=== PATIENT | male | born 1960 | race African-American/Black ===

== ENCOUNTER 2016-05-29 12:40 | Inpatient (IN) | payer MEDICAID ==
[~2016-05-29] VITALS: Ht 185.4 cm; Wt 81.6 kg
--- NOTE | 2016-05-29 12:56 | Emergency Room Report ---
History of Present Illness General Chief Complaint: Headache Source: Patient, Medical Record, EMS Present Illness HPI Patient presents with possible seizure Was found by paramedics on the ground Patient himself at this time is nonverbal He has reportedly had previous CVA Was also having headaches prior to the episode No reports of vomiting or diarrhea Unknown regarding trauma or recent travel There was no reports of fevers Allergies: Coded Allergies: LACTOSE (Verified Allergy, Unknown, 05/29/16) Patient History Limited by: medical condition Past Medical History: see triage record Pertinent Family History: unable to obtain Reviewed Nursing Documentation: PMH: Agreed, PSxH: Agreed Nursing Documentation-PMH Past Medical History: No History, Except For Hx Cardiac Problems: Yes - dvt, PE Hx Hypertension: Yes Hx Pacemaker: Yes Hx COPD: Yes Hx Neurological Problems: Yes - migraines Hx Cerebrovascular Accident: Yes Hx Seizures: Yes Review of Systems All Other Systems: limited - Other than the ones mentioned in the history of present illness all others are reviewed however they do stay limited due to the patient's mental status Physical Exam Vital Signs Date Time Temp Pulse Resp B/P Pulse Ox O2 Delivery O2 Flow Rate FiO2 05/29/16 12:31 99.5 76 18 170/104 98 Room Air Sp02 EP Interpretation: reviewed, normal General Appearance: no apparent distress - However the patient is staring to the left, questionably postictal not responsive verbally Head: normocephalic, atraumatic Eyes: bilateral eye EOMI, bilateral eye PERRL ENT: normal pharynx, no angioedema Neck: supple, thyroid normal, no meningismus Respiratory: chest non-tender, lungs clear, normal breath sounds, no respiratory distress Cardiovascular #1: normal peripheral pulses, regular rate, rhythm Gastrointestinal: non tender, soft, no mass Musculoskeletal: other - Patient is not following commands at this time he does withdrawal from physical stimuli also the IV attempt, Neurologic: responsive, other - Otherwise a very decreased GCS patient is nonverbal, has eyes open, tracks well, questionably postictal , Skin: no rash, warm/dry Lymphatic: no adenopathy Procedures Critical Care Time Critical Care Time 40 minutes for multiple reevaluation Initial critical presentation Neurological deficit concerning for end organ disease Life threatening pathology Not including procedural time Medical Decision Making Diagnostic Impression: Primary Impression: Epilepsy Additional Impression: Seizure ER Course Patient appears to have presented post ictal Initially was difficult to obtain IV access patient did have CT head obtained which was negative At this time the patient required a peripheral left-sided external jugular IV access which was placed by myself 22-gauge after cleansing and prepping the area appropriately placed in the appropriate manner Area was flushed and does not show any signs of anomaly Patient was given further Ativan here in the ER Neurology consultation has also seen the patient in the emergency room and patient admitted for further inpatient care He was able to leading to that he was recently discharged from [facility] is on multiple medications including Keppra and vimpat Labs Test 05/29/16 13:35 05/29/16 14:20 Urine Color Pale yellow Urine Appearance Clear Urine pH 8 (4.5-8.0) Urine Specific [place] 1.010 (1.005-1.035) Urine Protein Negative (NEGATIVE) Urine Glucose (UA) Negative (NEGATIVE) Urine Ketones Negative (NEGATIVE) Urine Occult Blood Negative (NEGATIVE) Urine Nitrite Negative (NEGATIVE) Urine Bilirubin Negative (NEGATIVE) Urine Urobilinogen Normal MG/DL (0.0-1.0) Urine Leukocyte Esterase Negative (NEGATIVE) Urine Opiates Screen Negative (NEGATIVE) Urine Barbiturates Screen Negative (NEGATIVE) Phencyclidine (PCP) Screen Negative (NEGATIVE) Urine Amphetamines Screen Negative (NEGATIVE) Urine Benzodiazepines Screen Negative (NEGATIVE) Urine Cocaine Screen Negative (NEGATIVE) Urine Marijuana (THC) Screen Negative (NEGATIVE) White Blood Count 4.4 K/UL (4.8-10.8) Red Blood Count 5.04 M/UL (4.70-6.10) Hemoglobin 14.6 G/DL (14.2-18.0) Hematocrit 45.2 % (42.0-52.0) Mean Corpuscular Volume 90 FL (80-99) Mean Corpuscular Hemoglobin 28.9 PG (27.0-31.0) Mean Corpuscular Hemoglobin Concent 32.2 G/DL (32.0-36.0) Red Cell Distribution Width 13.5 % (11.6-14.8) Platelet Count 305 K/UL (150-450) Mean Platelet Volume 6.3 FL (6.5-10.1) Neutrophils (%) (Auto) 43.1 % (45.0-75.0) Lymphocytes (%) (Auto) 44.9 % (20.0-45.0) Monocytes (%) (Auto) 6.1 % (1.0-10.0) Eosinophils (%) (Auto) 2.8 % (0.0-3.0) Basophils (%) (Auto) 3.2 % (0.0-2.0) Prothrombin Time 10.4 SEC (9.30-11.50) Prothromb Time International Ratio 1.0 (0.9-1.1) Activated Partial Thromboplast Time 26 SEC (23-33) Sodium Level 143 mEQ/L (135-145) Potassium Level 3.5 mEQ/L (3.4-4.9) Chloride Level 103 mEQ/L (98-107) Carbon Dioxide Level 24 mEQ/L (20-30) Anion Gap 16 (5-15) Blood Urea Nitrogen 11 mg/dL (7-23) Creatinine 1.0 mg/dL (0.7-1.2) Estimat Glomerular Filtration Rate > 60 mL/min (>60) Glucose Level 95 mg/dL (74-106) Calcium Level 9.4 mg/dL (8.6-10.2) Total Bilirubin 0.3 mg/dL (0.0-1.2) Aspartate Amino Transf (AST/SGOT) 52 U/L (5-40) Alanine Aminotransferase (ALT/SGPT) 83 U/L (3-41) Alkaline Phosphatase 80 U/L (40-129) Total Creatine Kinase 96 U/L (38-174) Creatine Kinase MB 1.5 ng/mL (< 6.7) Creatine Kinase MB Relative Index 1.5 Troponin I < 0.30 ng/mL (<=0.30) Pro-B-Type Natriuretic Peptide 41 pg/mL (0-125) Total Protein 6.7 g/dL (6.6-8.7) Albumin 4.2 g/dL (3.5-5.2) Globulin 2.5 g/dL Albumin/Globulin Ratio 1.6 (1.0-2.7) Triglycerides Level 82 mg/dL (< 150) Cholesterol Level 148 mg/dL (< 200) LDL Cholesterol 54 mg/dL (60-99) HDL Cholesterol 78 mg/dL (> 60) Cholesterol/HDL Ratio 1.9 (3.3-4.4) Lipase 35 U/L (< 60) Rhythm Strip Diag. Results EP Interpretation: yes Rate: 56 Rhythm: no PVC's, no ectopy, other - paced Chest X-Ray Diagnostic Results EP Interpretation: Yes Findings: no consolidation, no effusion, no pneumothorax CT/MRI/US Diagnostic Results CT/MRI/US Diagnostic Results : Impression CT head no acute disease Last Vital Signs Date Time Temp Pulse Resp B/P Pulse Ox O2 Delivery O2 Flow Rate FiO2 05/29/16 12:31 99.5 76 18 170/104 98 Room Air Status: improved Disposition: ADMITTED INPATIENT Condition: Serious VALENTE COBURN D.O. May 29, 2016 12:56
[2016-05-29 13:24] VITALS: BP 138/79
[2016-05-29] MEDS ORDERED: LORazepam Inj 2mg/ml 1ml ONE (13:31)
[2016-05-29] MEDS ORDERED: LORazepam Inj 2mg/ml 1ml IM ONE (13:45)
[2016-05-29 13:54] VITALS: BP 145/88
[2016-05-29 13:55] LABS: APPEARANCE,URINE CLEAR; KETONES,URINE NEGATIVE (NEGATIVE); LEUKOCYTE ESTERASE ,URINE NEGATIVE (NEGATIVE); NITRITE,URINE NEGATIVE (NEGATIVE); PH,URINE 8 (4.5-8.0); PROTEIN,URINE NEGATIVE (NEGATIVE); UROBILINOGEN,URINE NORMAL MG/DL (0.0-1.0)
--- NOTE | 2016-05-29 14:04 | Diagnostic Imaging Report ---
Indication: Chest pain Technique: Single portable AP view of the chest. Findings: Comparison: None. Small linear densities in left lung base. Left chest wall pacemaker. The bones and extra pulmonary soft tissues, cardiomediastinal silhouette, pulmonary vasculature and parenchyma, and pleural surfaces are otherwise unremarkable. IMPRESSION: Subsegmental atelectasis versus scarring left lung base Left chest wall pacemaker Otherwise negative portable AP chest .
[2016-05-29] MEDS ORDERED: NKM (14:22)
[2016-05-29] MEDS ORDERED: LORazepam Inj 2mg/ml 1ml IV ONE (14:30)
[2016-05-29 14:46] LABS: BASOPHILS % (AUTO) 3.2 % (0.0-2.0); EOSINOPHILS % (AUTO) 2.8 % (0.0-3.0); LYMPHOCYTES % (AUTO) 44.9 % (20.0-45.0); MEAN CORPUSCULAR HEMOGLOBIN 28.9 PG (27.0-31.0); MEAN CORPUSCULAR HGB CONC 32.2 G/DL (32.0-36.0); MEAN CORPUSCULAR VOLUME 90 FL (80-99); MEAN PLATELET VOLUME 6.3 FL (6.5-10.1); MONOCYTES % (AUTO) 6.1 % (1.0-10.0); NEUTROPHILS % (AUTO) 43.1 % (45.0-75.0); PLATELET COUNT 305 K/UL (150-450); RED BLOOD COUNT 5.04 M/UL (4.70-6.10); RED CELL DISTRIBUTION WIDTH 13.5 % (11.6-14.8); WHITE BLOOD COUNT 4.4 K/UL (4.8-10.8)
[2016-05-29 14:53] VITALS: BP 136/85
[2016-05-29 14:57] LABS: PROTHROMBIN TIME 10.4 SEC (9.30-11.50)
[2016-05-29 15:03] LABS: CARBON DIOXIDE 24 mEQ/L (20-30)
[2016-05-29 15:04] LABS: ALANINE AMINOTRANSFERASE 83 U/L (3-41); ALBUMIN/GLOBULIN RATIO 1.6 (1.0-2.7); ANION GAP 16 (5-15); ASPARTATE AMINO TRANSFERASE 52 U/L (5-40); CALCIUM 9.4 mg/dL (8.6-10.2); CHLORIDE 103 mEQ/L (98-107); GLOMERULAR FILTRATION RATE > 60 mL/min (>60); HEMOLYSIS 14; LIPASE 35 U/L (< 60); POTASSIUM 3.5 mEQ/L (3.4-4.9); SODIUM 143 mEQ/L (135-145); TOTAL PROTEIN 6.7 g/dL (6.6-8.7)
--- NOTE | 2016-05-29 15:05 | Neurology Progress Note ---
Objective Physical Exam Last Vital Signs Date Time Temp Pulse Resp B/P Pulse Ox O2 Delivery O2 Flow Rate FiO2 05/29/16 14:53 97.0 61 20 136/85 100 Room Air Laboratory Tests Test 05/29/16 13:35 05/29/16 14:20 Urine Color Pale yellow Urine Appearance Clear Urine pH 8 (4.5-8.0) Urine Specific [place] 1.010 (1.005-1.035) Urine Protein Negative (NEGATIVE) Urine Glucose (UA) Negative (NEGATIVE) Urine Ketones Negative (NEGATIVE) Urine Occult Blood Negative (NEGATIVE) Urine Nitrite Negative (NEGATIVE) Urine Bilirubin Negative (NEGATIVE) Urine Urobilinogen Normal MG/DL (0.0-1.0) Urine Leukocyte Esterase Negative (NEGATIVE) Urine Opiates Screen Pending Urine Barbiturates Screen Pending Phencyclidine (PCP) Screen Pending Urine Amphetamines Screen Pending Urine Benzodiazepines Screen Pending Urine Cocaine Screen Pending Urine Marijuana (THC) Screen Pending White Blood Count 4.4 K/UL (4.8-10.8) L Red Blood Count 5.04 M/UL (4.70-6.10) Hemoglobin 14.6 G/DL (14.2-18.0) Hematocrit 45.2 % (42.0-52.0) Mean Corpuscular Volume 90 FL (80-99) Mean Corpuscular Hemoglobin 28.9 PG (27.0-31.0) Mean Corpuscular Hemoglobin Concent 32.2 G/DL (32.0-36.0) Red Cell Distribution Width 13.5 % (11.6-14.8) Platelet Count 305 K/UL (150-450) Mean Platelet Volume 6.3 FL (6.5-10.1) L Neutrophils (%) (Auto) 43.1 % (45.0-75.0) L Lymphocytes (%) (Auto) 44.9 % (20.0-45.0) Monocytes (%) (Auto) 6.1 % (1.0-10.0) Eosinophils (%) (Auto) 2.8 % (0.0-3.0) Basophils (%) (Auto) 3.2 % (0.0-2.0) H Prothrombin Time 10.4 SEC (9.30-11.50) Prothromb Time International Ratio 1.0 (0.9-1.1) Activated Partial Thromboplast Time 26 SEC (23-33) Sodium Level Pending Potassium Level Pending Chloride Level Pending Carbon Dioxide Level Pending Blood Urea Nitrogen Pending Creatinine Pending Estimat Glomerular Filtration Rate Pending Glucose Level Pending Calcium Level Pending Total Bilirubin Pending Aspartate Amino Transf (AST/SGOT) Pending Alanine Aminotransferase (ALT/SGPT) Pending Alkaline Phosphatase Pending Total Creatine Kinase Pending Creatine Kinase MB Pending Troponin I Pending Pro-B-Type Natriuretic Peptide Pending Total Protein Pending Albumin Pending Globulin Pending Lipase Pending Impression/Recommendations Problems: (1) s/p stroke ,L hemiparesis,o (2) chronic posttraumatic seizure disorder, (3) r/o L cervical radiculopathy (4) severe headache Status: unchanged Recommendations [id number] NEIL STRAUSS May 29, 2016 15:05
[2016-05-29 15:15] LABS: CKMB 1.5 ng/mL (< 6.7)
--- NOTE | 2016-05-29 15:21 | History and Physical ---
History of Present Illness General Date patient seen: May 29, 2016 Reason for Hospitalization: Headache Present Illness HPI 56 year olf male with hx of post-traumatic seizures, recently discharged from [facility] [place], Patient was found by paramedics on the ground with possible seizure Patient himself at this time was nonverbal on presentation He has reportedly had previous CVA, Was also having headaches prior to the episode Pt has also a pacemaker. was seen already by neurology in ER. Allergies: Coded Allergies: LACTOSE (Verified Allergy, Unknown, 05/29/16) Medication History Scheduled No Known Medications* (NKM - No Known Medications*), 0 ., (Reported) Patient History Healthcare decision maker Resuscitation status Advanced Directive on File Social History Social History: (1) Homeless Review of Systems All Other Systems: negative except mentioned in HPI Physical Exam General Appearance: WD/WN, mild distress Lines, tubes and drains: central line HEENT: normocephalic, atraumatic Neck: non-tender, normal alignment Respiratory/Chest: chest wall non-tender Abdomen: non tender Last 24 Hour Vital Signs Date Time Temp Pulse Resp B/P Pulse Ox O2 Delivery O2 Flow Rate FiO2 05/29/16 14:53 97.0 61 20 136/85 100 Room Air 05/29/16 13:54 60 18 145/88 98 Room Air 05/29/16 13:24 62 18 138/79 98 Room Air 05/29/16 12:31 99.5 76 18 170/104 98 Room Air Laboratory Tests Test 05/29/16 13:35 05/29/16 14:20 Urine Color Pale yellow Urine Appearance Clear Urine pH 8 (4.5-8.0) Urine Specific [place] 1.010 (1.005-1.035) Urine Protein Negative (NEGATIVE) Urine Glucose (UA) Negative (NEGATIVE) Urine Ketones Negative (NEGATIVE) Urine Occult Blood Negative (NEGATIVE) Urine Nitrite Negative (NEGATIVE) Urine Bilirubin Negative (NEGATIVE) Urine Urobilinogen Normal MG/DL (0.0-1.0) Urine Leukocyte Esterase Negative (NEGATIVE) Urine Opiates Screen Negative (NEGATIVE) Urine Barbiturates Screen Negative (NEGATIVE) Phencyclidine (PCP) Screen Negative (NEGATIVE) Urine Amphetamines Screen Negative (NEGATIVE) Urine Benzodiazepines Screen Negative (NEGATIVE) Urine Cocaine Screen Negative (NEGATIVE) Urine Marijuana (THC) Screen Negative (NEGATIVE) White Blood Count 4.4 K/UL (4.8-10.8) L Red Blood Count 5.04 M/UL (4.70-6.10) Hemoglobin 14.6 G/DL (14.2-18.0) Hematocrit 45.2 % (42.0-52.0) Mean Corpuscular Volume 90 FL (80-99) Mean Corpuscular Hemoglobin 28.9 PG (27.0-31.0) Mean Corpuscular Hemoglobin Concent 32.2 G/DL (32.0-36.0) Red Cell Distribution Width 13.5 % (11.6-14.8) Platelet Count 305 K/UL (150-450) Mean Platelet Volume 6.3 FL (6.5-10.1) L Neutrophils (%) (Auto) 43.1 % (45.0-75.0) L Lymphocytes (%) (Auto) 44.9 % (20.0-45.0) Monocytes (%) (Auto) 6.1 % (1.0-10.0) Eosinophils (%) (Auto) 2.8 % (0.0-3.0) Basophils (%) (Auto) 3.2 % (0.0-2.0) H Prothrombin Time 10.4 SEC (9.30-11.50) Prothromb Time International Ratio 1.0 (0.9-1.1) Activated Partial Thromboplast Time 26 SEC (23-33) Sodium Level 143 mEQ/L (135-145) Potassium Level 3.5 mEQ/L (3.4-4.9) Chloride Level 103 mEQ/L (98-107) Carbon Dioxide Level 24 mEQ/L (20-30) Anion Gap 16 (5-15) H Blood Urea Nitrogen 11 mg/dL (7-23) Creatinine 1.0 mg/dL (0.7-1.2) Estimat Glomerular Filtration Rate > 60 mL/min (>60) Glucose Level 95 mg/dL (74-106) Calcium Level 9.4 mg/dL (8.6-10.2) Total Bilirubin 0.3 mg/dL (0.0-1.2) Aspartate Amino Transf (AST/SGOT) 52 U/L (5-40) H Alanine Aminotransferase (ALT/SGPT) 83 U/L (3-41) H Alkaline Phosphatase 80 U/L (40-129) Total Creatine Kinase 96 U/L (38-174) Creatine Kinase MB 1.5 ng/mL (< 6.7) Creatine Kinase MB Relative Index 1.5 Troponin I Pending Pro-B-Type Natriuretic Peptide 41 pg/mL (0-125) Total Protein 6.7 g/dL (6.6-8.7) Albumin 4.2 g/dL (3.5-5.2) Globulin 2.5 g/dL Albumin/Globulin Ratio 1.6 (1.0-2.7) Lipase 35 U/L (< 60) Height (Feet): 6 Height (Inches): 1.00 Weight (Pounds): 180 Medications Current Medications Medications (Trade) Dose Ordered Sig/Michelle Route PRN Reason Start Time Stop Time Status Last Admin Dose Admin Lacosamide (Vimpat) 200 mg Q12HR ORAL 05/29/16 15:00 06/28/16 14:59 UNV Levetiracetam (Keppra) 1,000 mg Q12HR ORAL 05/29/16 16:00 06/28/16 15:59 Assessment/Plan Problem List: (1) Recurrent seizures ICD Codes: G40.909 - Epilepsy, unspecified, not intractable, without status epilepticus SNOMED: 17189996 (2) s/p stroke ,L hemiparesis,o (3) severe headache (4) chronic posttraumatic seizure disorder, Assessment/Plan telemetry neuro evaluation social director pt might need placement LUISANA FELICIANO May 29, 2016 15:21
[2016-05-29 15:22] LABS: TROPONIN I < 0.30 ng/mL (<=0.30)
[2016-05-29 16:00] VITALS: BP 146/90
[2016-05-29 16:12] LABS: CHOLESTEROL/HDL RATIO 1.9 (3.3-4.4)
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
[2016-05-29] MEDS: Lacosamide 100 MG TABLET ORAL SCH (18:23)
[2016-05-29 20:00] VITALS: BP 146/81
--- NOTE | 2016-05-29 21:00 | Cardiology Progress Note ---
Assessment/Plan Assessment/Plan [id number] Objective Last 24 Hour Vital Signs Date Time Temp Pulse Resp B/P Pulse Ox O2 Delivery O2 Flow Rate FiO2 05/29/16 20:00 109 20 146/81 99 Room Air 05/29/16 16:00 62 18 146/90 97 Room Air 05/29/16 15:45 97.0 60 20 124/96 100 Room Air 05/29/16 14:53 97.0 61 20 136/85 100 Room Air 05/29/16 13:54 60 18 145/88 98 Room Air 05/29/16 13:24 62 18 138/79 98 Room Air 05/29/16 12:31 99.5 76 18 170/104 98 Room Air Laboratory Tests Test 05/29/16 13:35 05/29/16 14:20 Urine Color Pale yellow Urine Appearance Clear Urine pH 8 (4.5-8.0) Urine Specific [place] 1.010 (1.005-1.035) Urine Protein Negative (NEGATIVE) Urine Glucose (UA) Negative (NEGATIVE) Urine Ketones Negative (NEGATIVE) Urine Occult Blood Negative (NEGATIVE) Urine Nitrite Negative (NEGATIVE) Urine Bilirubin Negative (NEGATIVE) Urine Urobilinogen Normal MG/DL (0.0-1.0) Urine Leukocyte Esterase Negative (NEGATIVE) Urine Opiates Screen Negative (NEGATIVE) Urine Barbiturates Screen Negative (NEGATIVE) Phencyclidine (PCP) Screen Negative (NEGATIVE) Urine Amphetamines Screen Negative (NEGATIVE) Urine Benzodiazepines Screen Negative (NEGATIVE) Urine Cocaine Screen Negative (NEGATIVE) Urine Marijuana (THC) Screen Negative (NEGATIVE) White Blood Count 4.4 K/UL (4.8-10.8) L Red Blood Count 5.04 M/UL (4.70-6.10) Hemoglobin 14.6 G/DL (14.2-18.0) Hematocrit 45.2 % (42.0-52.0) Mean Corpuscular Volume 90 FL (80-99) Mean Corpuscular Hemoglobin 28.9 PG (27.0-31.0) Mean Corpuscular Hemoglobin Concent 32.2 G/DL (32.0-36.0) Red Cell Distribution Width 13.5 % (11.6-14.8) Platelet Count 305 K/UL (150-450) Mean Platelet Volume 6.3 FL (6.5-10.1) L Neutrophils (%) (Auto) 43.1 % (45.0-75.0) L Lymphocytes (%) (Auto) 44.9 % (20.0-45.0) Monocytes (%) (Auto) 6.1 % (1.0-10.0) Eosinophils (%) (Auto) 2.8 % (0.0-3.0) Basophils (%) (Auto) 3.2 % (0.0-2.0) H Prothrombin Time 10.4 SEC (9.30-11.50) Prothromb Time International Ratio 1.0 (0.9-1.1) Activated Partial Thromboplast Time 26 SEC (23-33) Sodium Level 143 mEQ/L (135-145) Potassium Level 3.5 mEQ/L (3.4-4.9) Chloride Level 103 mEQ/L (98-107) Carbon Dioxide Level 24 mEQ/L (20-30) Anion Gap 16 (5-15) H Blood Urea Nitrogen 11 mg/dL (7-23) Creatinine 1.0 mg/dL (0.7-1.2) Estimat Glomerular Filtration Rate > 60 mL/min (>60) Glucose Level 95 mg/dL (74-106) Calcium Level 9.4 mg/dL (8.6-10.2) Total Bilirubin 0.3 mg/dL (0.0-1.2) Aspartate Amino Transf (AST/SGOT) 52 U/L (5-40) H Alanine Aminotransferase (ALT/SGPT) 83 U/L (3-41) H Alkaline Phosphatase 80 U/L (40-129) Total Creatine Kinase 96 U/L (38-174) Creatine Kinase MB 1.5 ng/mL (< 6.7) Creatine Kinase MB Relative Index 1.5 Troponin I < 0.30 ng/mL (<=0.30) Pro-B-Type Natriuretic Peptide 41 pg/mL (0-125) Total Protein 6.7 g/dL (6.6-8.7) Albumin 4.2 g/dL (3.5-5.2) Globulin 2.5 g/dL Albumin/Globulin Ratio 1.6 (1.0-2.7) Triglycerides Level 82 mg/dL (< 150) Cholesterol Level 148 mg/dL (< 200) LDL Cholesterol 54 mg/dL (60-99) L HDL Cholesterol 78 mg/dL (> 60) H Cholesterol/HDL Ratio 1.9 (3.3-4.4) L Lipase 35 U/L (< 60) KRISTIN JONES May 29, 2016 21:00
[2016-05-29] MEDS: Heparin 5000 units/ml inj SUBQ SCH (21:58)
[2016-05-29] MEDS ORDERED: LORazepam Inj 2mg/ml 1ml IV PRN (23:00)
--- NOTE | 2016-05-29 23:18 | Consultation ---
DATE OF CONSULTATION: 05/29/2016 NEUROLOGICAL CONSULTATION REQUESTING PHYSICIAN: Rafa Guerrero M.D. HISTORY OF PRESENT ILLNESS: The patient is a 56-year-old man with multiple medical issues including chronic seizure disorder, presented to this hospital after he was found to be on the ground by paramedics. As the patient was brought to this hospital, he was still nonverbal and reportedly had severe headaches prior to event. On arrival, blood pressure 170/104, heart rate of 76, and temperature 99.6 degrees. CAT scan of the brain revealed no acute intracranial abnormalities. The patient had IV access through the external jugular on the left. His vital signs following admission remained stable with blood pressure was 145/88. Imaging studies included chest x-ray revealing subsegmental atelectasis verus chronic left lung base and left chest wall pacemaker, otherwise negative. Laboratory work was requested and now pending except presence of normal urinalysis. The patient had no further seizure activities on admission According to medical records from [facility], the patient was hospitalized at the emergency room on 05/10/2016. She was presenting with chest pain, several vague complaints. He was initially hypertensive with blood pressure of 179/92. His examination revealed tenderness on palpation left deltoid. Laboratory work included unremarkable CBC study and electrolyte panel with normal coagulation panel. A CAT scan of the brain was negative for any intracranial abnormalities. No evidence of midline shift. No strokes. No evidence of hydrocephalus. The patient was discharged in the stable condition. PAST MEDICAL HISTORY: The patient has a history of significant head trauma in 2005 following the year 2006, developed a generalized clonic-tonic seizure episode, lately with five to six episodes per year. For many years, she was maintained on Keppra. He tried on Dilantin, but had some side effects, which was discontinued, but after following recent hospitalization, he is maintained on Keppra and Vimpat 200 mg b.i.d. The patient previously was noncompliant, now stating that he actually takes medication on time off especially for last couple weeks, as he is maintained in a recuperative facility. Past medical history includes presence of COPD, coronary artery disease, severe bradycardia required the pacemaker placement, had a stroke in 2007 resulted in left-sided weakness. He has a history of multiple DVTs, history of substance abuse included including cocaine and amphetamine, although the patient denies current use. He has hypertension. He is suspected to have hypercoagulable state. FAMILY HISTORY: Noncontributory. SOCIAL HISTORY: He is homeless, temporarily in a recuperative department for another couple weeks. REVIEW OF SYMPTOMS: The patient indicated that he has previously headaches, but the last two to three days, he had a little severe headache in the vertex region, which is constant. In addition, he has had the last days of diarrhea, complains now with severe tightness in left side of the neck radiating to left arm with numbness in his left hand. He has intermittent numbness in both feet. He has left-sided weakness, unstable gait, and started to use the walker. Denies visual or hearing abnormalities. No chest pain. No palpitations. No respiratory difficulties. No abdominal pain discomfort. PHYSICAL EXAMINATION: GENERAL: A well-developed and well-nourished man, not in acute distress, found to be asleep, but easily arousable. VITAL SIGNS: His vital signs now stable. Blood pressure was 145/88 and he is afebrile. HEENT: Head, normocephalic. There is no evidence of injuries noted. No otorrhea. No rhinorrhea. NECK: Supple. No meningeal signs. MUSCULOSKELETAL: There is acute tenderness on palpation left side of the neck, left shoulder, and left arm. Peripheral pulses 1+ symmetric. MENTAL STATUS: He is alert and oriented x3. His speech is fluent. Language intact. He is somewhat upset and anxious. He is a poor historian, but at times difficulty on focusing. CRANIAL NERVES II: Pupils both responding to light and accommodation. Extraocular movement intact. No nystagmus. CRANIAL NERVE V: Normal corneal responses. CRANIAL NERVE VII: No facial asymmetry. CRANIAL NERVE VIII: Normal hearing. CRANIAL NERVE IX THROUGH XII: Within normal limits. MOTOR EXAMINATION: Revealed normal muscle tone and strength in right upper and right lower extremity, although initially the patient demonstrated some rigidity and weakness in the right lower extremities, which later corrected. He has weakness of 4/5 in left upper extremity and left hand body corporate manager 3/5. He was unable to lift left leg more than 10 degree and was unable to hold it against the gravity for more than a few seconds. He was asked to bend his knees and indicated that he is unable to do bending left leg. Deep tendon reflexes depressed bilaterally. Plantar response is flexor. There is no pathological responses. SENSORY EXAMINATION: Reduced response to pin stimulation on left side of the body. Gait not tested. IMPRESSION: 1. Chronic seizure disorder with poor control, most likely result of noncompliance. 2. Recent onset of severe left-sided neck pain with radiating to left upper extremity, rule out a discogenic disease with radiculopathy. 3. 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 4. Coronary artery disease. 5. History of recurrent deep vein thrombosis. 6. Pacemaker in place. RECOMMENDATION: 1. CT scan of the cervical spine. 2. X-ray of the left shoulder. 3. Restart on Keppra 1000 mg b.i.d., Vimpat 200 mg b.i.d. and hold Dilantin due to history of side effect. 4. EEG. 5. litigation services manager assessment. 6. Ativan 1 mg q.2 h. p.r.n. for breakthrough seizures. 7. Monitored bed to observe for any paroxysmal events. Thank you for allowing me to see this interesting patient in neurological consultation. Je Lacey M.D. DR: KERLINE JOB#: [id number] CC:
[2016-05-30] VITALS: BP 144/82
--- NOTE | 2016-05-30 03:17 | Consultation ---
DATE OF CONSULTATION: 05/29/2016 CARDIOLOGY CONSULTATION REFERRING PHYSICIAN: Rafa Guerrero M.D. REASON FOR REFERRAL: Altered mentation and questionable seizure. HISTORY OF PRESENT ILLNESS: This is a gentleman who has had a history of multiple medical problems the patient was found by the paramedics to be unresponsive and was brought to the emergency room here at [facility] and has been admitted. He has been altered and unable to provide any good history, although at the present time, he is still groggy, but he is able to communicate. He does have chest pain, shortness of breath, dizziness, and lightheadedness. He has had some diarrhea he states, but he really unable to elaborate any further on those. The patient's records from [facility] and [facility] have been reviewed. Apparently, he was recently hospitalized and discharged in April from [facility] for arm pain and chest pain and seizures with a history of status epilepticus as previously noted with [place] and history of coronary disease, status post permanent pacemaker implantation, polysubstance abuse, homelessness, multiple prior DVTs, suspected hypercoagulable state based on the chart review, chronic obstructive pulmonary disease, paraplegia, noncompliance with medications, hypertension, myocardial infarction in 1995 as well as chronic obstructive pulmonary disease and active smoker apparently as well as possible drug use previously cocaine . He was hospitalized [facility] on several occasions for seizures and apparently was not taking any of the medication when to the hospital. PAST SURGICAL HISTORY: History of pacemaker implantation. SOCIAL HISTORY: He has been smoking cigarettes. He does not have any history. He reports that he drinks alcoholic beverages. He reports that he uses marijuana twice per week. ALLERGIES: Lactose intolerance. MEDICATIONS: Unknown. REVIEW OF SYSTEMS: As mentioned. PHYSICAL EXAMINATION: GENERAL: Shows to be a middle-aged gentleman, in no apparent respiratory distress, altered, having an EEG performed. NECK: Supple. No jugular venous distention. LUNGS: Appear to be clear to auscultation and percussion. CARDIAC: S1 is normal. S2 is normal. Regular rate and rhythm. No heaves, thrills, or gallops noted. ABDOMEN: Soft and nontender. Positive bowel sounds. EXTREMITIES: There is no edema. NEUROLOGIC: He is responsive with very low voice and difficult to understand. LABORATORY AND DIAGNOSTIC DATA: White count 4.4, hemoglobin 14.6, and platelet count of 305,000. Sodium 142, potassium 3.5, chloride 102, bicarbonate 24, BUN 11, creatinine 1.2, and glucose of 60. His 1 troponin was negative at the time of admission of 41. ASSESSMENT AND PLAN: 1. Altered mentation, possible seizure disorder. 2. Chest pain. 3. History of seizures. 4. Coronary disease, reportedly myocardial infarction in 1995, now permanent pacemaker implantation. 5. History of polysubstance abuse. 6. History of multiple deep vein thrombosis with poor compliance with medication, anticoagulation, history of inferior vena cava filter placement. PLAN: Dr. Guerrero, this patient was seen in cardiac consultation. I will repeat the patient's troponin in the morning as well as the EKG, first one appears quite normal. He apparently has had a history of complaints of chest pain on previous occasions. [facility] data and he has had several CT scans major cardiac workup previously at [facility] have been done and apparently he was recently hospitalized and discharged from [facility]. I will not perform any further testing unless abnormalities noted on one of his cardiac tests that he has undergone at the present time. Dr. Guerrero, thank you for allowing me to participate in the care of this patient. Jose L Corbin M.D. DR: KERRY JOB#: [id number] CC:
[2016-05-30 04:00] VITALS: BP 128/85
[2016-05-30 08:00] VITALS: BP 131/75
[2016-05-30 08:32] LABS: TROPONIN I < 0.30 ng/mL (<=0.30)
[2016-05-30] MEDS: Lacosamide 100 MG TABLET ORAL SCH (08:51)
[2016-05-30] MEDS: Heparin 5000 units/ml inj SUBQ SCH (08:55)
[2016-05-30 12:00] VITALS: BP 126/79
--- NOTE | 2016-05-30 13:26 | Pulmonology Progress Note ---
Assessment/Plan Problems: (1) Recurrent seizures (2) s/p stroke ,L hemiparesis,o (3) severe headache (4) chronic posttraumatic seizure disorder, Assessment/Plan improving wants to be discharged cardio and neuro notes appreciated Subjective ROS Limited/Unobtainable: No HEENT: Repors: no symptoms Respiratory: Reports: no symptoms Cardiovascular: Reports: no symptoms Allergies: Coded Allergies: LACTOSE (Verified Allergy, Unknown, 05/29/16) Objective Last 24 Hour Vital Signs Date Time Temp Pulse Resp B/P Pulse Ox O2 Delivery O2 Flow Rate FiO2 05/30/16 12:00 60 05/30/16 12:00 97.0 66 18 126/79 96 Room Air 05/30/16 09:10 72 60 64 05/30/16 08:00 60 05/30/16 08:00 97.9 60 17 131/75 99 Room Air 05/30/16 04:00 60 05/30/16 04:00 97.5 60 20 128/85 99 Room Air 05/30/16 00:00 97.7 60 20 144/82 100 Room Air 05/30/16 00:00 62 05/29/16 20:00 61 05/29/16 20:00 109 20 146/81 99 Room Air 05/29/16 16:00 62 18 146/90 97 Room Air 05/29/16 15:45 97.0 60 20 124/96 100 Room Air 05/29/16 14:53 97.0 61 20 136/85 100 Room Air 05/29/16 13:54 60 18 145/88 98 Room Air Intake and Output 05/29/16 05/30/16 19:00 07:00 Intake Total 0 ml Balance 0 ml Intake Oral 0 ml # Voids 1 General Appearance: WD/WN HEENT: normocephalic, atraumatic Respiratory/Chest: chest wall non-tender, lungs clear Cardiovascular: normal peripheral pulses, normal rate Abdomen: normal bowel sounds, soft, non tender Genitourinary: normal external genitalia Laboratory Tests 05/29/16 13:35: Urine Color Pale yellow, Urine Appearance Clear, Urine pH 8, Urine Specific [place] 1.010, Urine Protein Negative, Urine Glucose (UA) Negative, Urine Ketones Negative, Urine Occult Blood Negative, Urine Nitrite Negative, Urine Bilirubin Negative, Urine Urobilinogen Normal, Urine Leukocyte Esterase Negative , Urine Opiates Screen Negative, Urine Barbiturates Screen Negative, Phencyclidine (PCP) Screen Negative, Urine Amphetamines Screen Negative, Urine Benzodiazepines Screen Negative, Urine Cocaine Screen Negative, Urine Marijuana (THC) Screen Negative 05/29/16 14:20: White Blood Count 4.4L, Red Blood Count 5.04, Hemoglobin 14.6, Hematocrit 45.2, Mean Corpuscular Volume 90, Mean Corpuscular Hemoglobin 28.9, Mean Corpuscular Hemoglobin Concent 32.2, Red Cell Distribution Width 13.5, Platelet Count 305, Mean Platelet Volume 6.3L, Neutrophils (%) (Auto) 43.1L, Lymphocytes (%) (Auto) 44.9, Monocytes (%) (Auto) 6.1, Eosinophils (%) (Auto) 2.8, Basophils (%) (Auto ) 3.2H, Prothrombin Time 10.4, Prothromb Time International Ratio 1.0, Activated Partial Thromboplast Time 26, Sodium Level 143, Potassium Level 3.5, Chloride Level 103, Carbon Dioxide Level 24, Anion Gap 16H, Blood Urea Nitrogen 11, Creatinine 1.0, Estimat Glomerular Filtration Rate > 60, Glucose Level 95, Calcium Level 9.4, Total Bilirubin 0.3, Aspartate Amino Transf (AST/SGOT) 52H, Alanine Aminotransferase (ALT/SGPT) 83H, Alkaline Phosphatase 80, Total Creatine Kinase 96, Creatine Kinase MB 1.5, Creatine Kinase MB Relative Index 1.5, Troponin I < 0.30, Pro-B-Type Natriuretic Peptide 41, Total Protein 6.7, Albumin 4.2, Globulin 2.5, Albumin/Globulin Ratio 1.6, Triglycerides Level 82, Cholesterol Level 148, LDL Cholesterol 54L, HDL Cholesterol 78H, Cholesterol/ HDL Ratio 1.9L, Lipase 35 05/30/16 07:30: Troponin I < 0.30 Current Medications Medications (Trade) Dose Ordered Sig/Michelle Route PRN Reason Start Time Stop Time Status Last Admin Dose Admin Heparin Sodium (Porcine) (Heparin 5000 units/ml) 5,000 units EVERY 12 HOURS SUBQ 05/29/16 21:00 06/28/16 20:59 05/30/16 08:55 Lacosamide (Vimpat) 200 mg Q12HR ORAL 05/29/16 16:00 06/28/16 15:59 05/30/16 08:51 Levetiracetam (Keppra) 1,000 mg Q12HR ORAL 05/29/16 16:00 06/28/16 15:59 05/30/16 08:51 Lorazepam (Ativan 2mg/ml 1ml) 1 mg Q1H PRN IV For Seizures 05/29/16 23:00 06/05/16 22:59 LUISANA FELICIANO May 30, 2016 13:26
[2016-05-30] MEDS ORDERED: KEPPRA500 M3 ORAL (13:28)
[2016-05-30] MEDS ORDERED: VIMPAT100 MG ORAL (13:28)
[2016-05-30 16:00] VITALS: BP 143/79
--- NOTE | 2016-05-30 18:41 | Neurology Progress Note ---
Interim History Interim History ROS Limited/Unobtainable: No Complaints: feel better Events: no sz noted Objective Physical Exam Last Vital Signs Date Time Temp Pulse Resp B/P Pulse Ox O2 Delivery O2 Flow Rate FiO2 05/30/16 16:00 62 05/30/16 16:00 97.7 18 143/79 100 Room Air Laboratory Tests Test 05/30/16 07:30 Troponin I < 0.30 ng/mL (<=0.30) General: well developed, well nourished, no acute distress Head: normocophalic, atraumatic Neck: no rigidity Neurologic Exam Mental Status: awake, alert, oriented x4, normal cognition, good mathematical skills, normal recent memory, normal remote memory Speech: normal speech, no dysarthia Language: normal language, no aphasia Cranial Nerve II: fundus normal, visual goss, no papilledema Cranial Nerves III, IV, : PERRLA, EOMI, pupils Cranial Nerve V: normal facial sensations, temporales function normal, masseters function normal, pterygoids function normal Cranial Nerve VII: normal facial expressions Cranial Nerve VIII: no nystagmus Cranial Nerve IX: gag response Cranial Nerve XI: trapezii function normal Cranial Nerve XII: tongue midline, no tongue atrophy/fasciculations Motor System: other - lL arm4/5 L leg 3/5increased tone Sensory: normal pinprick Coordination: other Deep Tendon Reflexes: 0 ankle (L), 0 ankle (R), 0 bicep (L), 0 bicep (R), 0 brachioradialis (L), 0 brachioradialis (R), 0 knee (L), 0 knee (R), 0 tricep (L) , 0 tricep (R) Reflexes: mute plantar (L), mute plantar (R) Impression/Recommendations Problems: (1) s/p stroke ,L hemiparesis,o (2) chronic posttraumatic seizure disorder, (3) r/o L cervical radiculopathy (4) severe headache Status: stable, unchanged Recommendations [id number] cont keppra 1500mg bid Vimpat 200mg bid neuro stable placement NEIL STRAUSS May 30, 2016 18:41
--- NOTE | 2016-05-31 08:30 | Diagnostic Imaging Report ---
Indications: Seizure, altered mental status Technique: Continuous helical CT imaging of the brain was performed with automatic exposure control on a Siemens sensation [address] scanner. Axial and coronal images were reconstructed at 5 mm slice thickness and interval. CTDI volume(s): 70 mGy Total DLP: 1456 mGy-cm Findings: Comparison: None. Intracranial anatomy is unremarkable. No evidence of mass or hemorrhage, other attenuation abnormality, mass effect, midline shift, hydrocephalus or increased intracranial pressure. Bone window images are unremarkable. Visualized paranasal sinuses and mastoid air cells are clear. IMPRESSION: Negative noncontrast CT scan of the brain Examination suboptimal for evaluation of first-time seizure. MRI of the brain without and with gadolinium, seizure protocol, recommended for more complete evaluation, as clinically indicated.. The CT scanner at [facility] is accredited by the [employer] and the scans are performed using protocols designed to limit radiation exposure to as low as reasonably achievable to attain images of sufficient resolution adequate for diagnostic evaluation.
--- NOTE | 2016-06-02 14:40 | Discharge Summary ---
Discharge Summary Hospital Course Date of Admission May 29, 2016 at 13:44 Date of Discharge May 30, 2016 at 18:00 Admitting Diagnosis CVA HPI Anmol Anna is a 56 year old male who was admitted on May 29, 2016 at 13: 44 for Cardio Vascular Accident Hospital Course dc summary dictated #[id number] Discharge Medications New Medications: Lacosamide (Vimpat) 100 Mg Tablet 200 MG ORAL Q12HR for 30 Days, TAB Levetiracetam (Levetiracetam) 500 Mg Tablet 1000 MG ORAL Q12HR for 30 Days, TAB Discharge Condition Upon Discharge: stable Discharge Disposition Patient was discharged to Home (01) Discharge Diagnoses: Discharge Instructions Discharge Instructions Special Instructions I have been assigned to complete a D/C Summary on this account. I was not involved in the patient management Gavi Dumont NP (Vanchtein) Jun 02, 2016 14:40
--- NOTE | 2016-06-03 15:52 | Cardiology Report ---
APPROVED REPORT EKG Measurement Heart [id number] Atrial paced rhythm RV cionduction delay Abnormal ECG
--- NOTE | 2016-06-03 21:27 | Electroencephalogram ---
ELECTROENCEPHALOGRAPHY: DATE OF TEST: 05/29/2016 This is a 56-year-old male with a history of seizure disorder and previous right hemispheric stroke now presented with episodes of unresponsiveness. Current treatment include Keppra, Vimpat, and Ativan. During recording, the patient described as being very sleepy, but at times awake drowsy but fairly cooperative. EEG was done using 18 electrodes placed scalp to scalp, scalp to ear montages according to 10/20 International System. Most wakeful portions of recording, background activity consists of well regulated, 9-11 cycles per second, low to medium voltage alpha activity at times fashion, no asymmetry from side to side. No spike or wave activities, intermittently appearance of generalized slowing. Theta range was noted corresponding to sleep stages. IMPRESSION: Normal awake stage 1 sleep EEG. Je Lacey M.D. DR: Lesley JOB#: [id number] CC:
--- NOTE | 2016-06-03 22:48 | Discharge Summary 2 SIG ---
DATE OF ADMISSION: 05/29/2016 DATE OF DISCHARGE: 05/30/2016 REASON FOR HOSPITALIZATION: The patient is a 56-year-old male with a history of posttraumatic seizure, recently discharged from [facility] [place] [facility], brought to ED by property preservation specialist, found on the ground with a possible seizure. The patient was brought for evaluation. At the time of presentation, the patient was nonverbal. He apparently had a previous CVA as well as the headaches prior to the episode. The patient has a pacemaker and was evaluated for cardiac issue recently in [facility] and [facility]. Subsequently CT of the head was done, which was negative for any acute intracranial pathology. The patient was transferred to the floor for further management. ADMITTING DIAGNOSES: Include: 1. Chronic recurrent seizure. 2. Status post stroke with left hemiparesis. 3. Chronic posttraumatic seizure disorder. 4. Severe headaches. HOSPITAL COURSE: The patient was admitted to telemetry. Neurology and cardiac evaluation were requested. Social service was requested for placement. CT head : no evidence of acute intracranial pathology. No evidence of mass or hemorrhage. No midline shift, hydrocephalus, or increased intracranial pressure as well as no mass effect. The patient was placed on Keppra and Vimpat ; Dilantin on hold secondary to reported side effect. Seizure precaution maintained. Neurologist recommended transfer to monitor bed to observe the seizure as well as the EEG. Cardiology seen the patient and deemed no need for further cardiac workup. All the symptoms seemed to be related to recurrent seizure disorder- as per cardiology. The patient had a recent cardiac workup in [facility] as well as the [facility]. Thus, photography editor decided not to do any cardiac workup for this patient at this time. Troponin was negative. EKG, no ST changes. Urine tox screen was negative, Chest x-ray revealed subsegmental atelectasis versus scaring on the left lung base, left chest wall pacemaker, otherwise negative. Cervical spine CT revealed old unfused fracture of the odontoid process with mild C1-C2 subluxation, mild degenerative disc disorder, and mild diffuse congenital spinal stenosis. The patient was recommended to follow up with the primary medical doctor for further management According to the insurance, the patient needed to [facility], but the patient wanted to go back to the recuperative care where he resides and then follow up with his primary medical doctor. The patient felt better. No further seizures. Prescription for Keppra and Vimpat provided. Due to the rapid and unexpected improvement in the patient's clinical condition , the patient was discharged in one day. Patient was stable for discharge, DISCHARGE MEDICATIONS: See medication reconciliation list. DISCHARGE DIAGNOSES: 1. Chronic seizure disorder with poor compliance. 2. Status post right middle cerebral artery stroke with left hemiparesis. 3. Coronary artery disease. 4. Pacemaker. 5. Severe left neck pain 2 to degenerative disc disorder and mild diffused spinal stenosis. 6. Polysubstance abuse. 7. Acute toxic encephalopathy possibly secondary to ? polysubstance abuse, resolved. DISCHARGE INSTRUCTIONS: Patient was discharged home. Follow up with primary care provider. patient was advised on seizure precaution as well as the abstinence from the street drugs. The patient was counseled not to drive due to the recurrent seizure disorder. DMV notified by SANDRA, I have been assigned to dictate discharge summary on this account and I was not involved in the patient's management. Rafa Guerrero M.D. Gavi PatelSamaritan Medical Centercathy NMelida DR: MELECIO JOB#: [id number] CC: REINA
== END 2016-05-30 18:00 | disposition home or self-care (01) | DRG 53 ==
LOC: EDBD 12:40 → EMR 13:12 → 2E 13:44 → EDBD 13:44 → EDBEDREQ 14:09
DX: R56.1 Post traumatic seizures (principal); I69.354 Hemiplegia and hemiparesis following cerebral infarction affecting left non-dominant side; Z95.0 Presence of cardiac pacemaker; J44.9 Chronic obstructive pulmonary disease, unspecified; Z59.0 Homelessness; Z91.14 Patient's other noncompliance with medication regimen; I25.10 Atherosclerotic heart disease of native coronary artery without angina pectoris; Z72.0 Tobacco use; F12.90 Cannabis use, unspecified, uncomplicated; I25.2 Old myocardial infarction; Z86.718 Personal history of other venous thrombosis and embolism
CPT/HCPCS: 36415; 70450; 71010; 72125; 80053; 80061; 80299; 80300; 81003; 82550; 82553; 83690; 83880; 84484; 85025; 85610; 85730; 93005; 95819